=== PATIENT | male | born 1970 | race Caucasian/White ===

== ENCOUNTER 2018-09-21 12:21 | Day surgery (SDC) | payer BC ==
[~2018-09-21 12:21] MED LIST: Lactated Ringers 1,000 ML IV SCH
[2018-09-21] MEDS ORDERED: Midazolam 1 MG/ML 2 ML SDV ONE (12:50)
[2018-09-21] MEDS ORDERED: Propofol 200 MG/20 ML SDV ONE (12:50)
[2018-09-21] MEDS ORDERED: fentaNYL 100 MCG/2 ML SDV ONE (12:50)
--- NOTE | 2018-09-21 13:05 | PCM.PREANE ---
Preanesthetic Assessment - Anesthesia/Transfusion/Family Hx Anesthesia History: Prior Anesthesia Without Reaction Other Type of Anesthesia Reaction Comment: Denies any known family hx problems Family History of Anesthesia Reaction: No Transfusion History: No Prior Transfusion(s) Intubation History: Unknown - Review of Systems General: No Symptoms Pulmonary: No Symptoms Cardiovascular: No Symptoms Gastrointestinal: No Symptoms, Other (check up 3 years after sigmoid colectomy) Neurological: No Symptoms Other: Reports: None - Physical Assessment O2 Sat by Pulse Oximetry: 96 Respiratory Rate: 16 Vital Signs: Last Vital Signs Temp 36.2 C 09/21/18 12:45 Pulse 67 09/21/18 12:45 Resp 16 09/21/18 12:45 BP 128/94 H 09/21/18 12:45 Pulse Ox 96 09/21/18 12:45 Height: 6 ft Weight: 95.254 kg ASA Class: 2 Mental Status: Alert & Oriented x3 Airway Class: Mallampati = 2 Dentition: Reports: Dentures (upper and lower) Thyro-Mental Finger Breadths: 3 Mouth Opening Finger Breadths: 3 ROM/Head Extension: Full Lungs: Clear to Auscultation, Normal Respiratory Effort Cardiovascular: Regular Rate, Regular Rhythm - Allergies Allergies/Adverse Reactions: Allergies Allergy/AdvReac Type Severity Reaction Status Date / Time ephedrine Allergy Severe Seizure Verified 09/20/18 10:08 [place] scents Allergy Sneezing Uncoded 09/20/18 10:08 Metals Allergy Blisters Uncoded 09/20/18 10:09 perfumes Allergy Sneezing Uncoded 09/20/18 10:08 - Blood Blood Available: No - Anesthesia Plan Pre-Op Medication Ordered: None - Acknowledgements Anesthesia Type Planned: MAC Pt an Appropriate Candidate for the Planned Anesthesia: Yes Alternatives and Risks of Anesthesia Discussed w Pt/Guardian: Yes Pt/Guardian Understands and Agrees with Anesthesia Plan: Yes PreAnesthesia Questionnaire Other HEENT History: upper & lower denture Cardiovascular History: Reports: None Respiratory History: Reports: Asthma, Other (See Below) Other Respiratory History: hx: Bronchitis as a child, and 30 yr history of smoking, denies having a prescribed inhaler Gastrointestinal History: Reports: Diverticulosis, Other (See Below) Other Gastrointestinal History: hx diverticulitis Genitourinary History: Reports: None Musculoskeletal History: Reports: Arthritis Other Musculoskeletal History: hx: Fractured Skull, Boxer fracture Right Hand, herniated disc to back, intermittent back pain Neurological History: Reports: Concussion, Head Trauma Other Neuro History: 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, hx fx skull with "bleeding on the brain" Psychiatric History: Reports: Depression Other Psychiatric History: Anti-depressants taken in ', denies any need since that time Endocrine/Metabolic History: Reports: None Hematologic History: Reports: None Immunologic History: Reports: None Oncologic (Cancer) History: Reports: None Dermatologic History: Reports: None - Past Surgical History Head Surgeries/Procedures: Reports: None HEENT Surgical History: Reports: Oral Surgery Cardiovascular Surgical History: Reports: None Respiratory Surgical History: Reports: None GI Surgical History: Reports: Colon (sigmoidectomy 10/25 for severe diverticulitis), Colonoscopy Other GI Surgeries/Procedures: colon resection Male Surgical History: Reports: None Endocrine Surgical History: Reports: None Neurological Surgical History: Reports: None Musculoskeletal Surgical History: Reports: None Oncologic Surgical History: Reports: None Dermatological Surgical History: Reports: None - SUBSTANCE USE Smoking Status *Q: Current Every Day Smoker Tobacco Use Within Last Twelve Months: Cigarettes Recreational Drug Use History: No - HOME MEDS Home Medications: Home Meds . [No Known Home Meds] 09/20/18 [History] - CURRENT (IN HOUSE) MEDS Current Meds: Current Medications Lactated Ringer's (Ringers, Lactated) 1,000 mls @ 125 mls/hr IV ASDIRECTED SKYLER Discontinued Medications Fentanyl (Sublimaze) Confirm Administered Dose 100 mcg .ROUTE .STK-MED ONE Stop: 09/21/18 12:51 Lidocaine HCl (Xylocaine-Mpf 1%) Confirm Administered Dose 5 mls @ as directed .ROUTE .STK-MED ONE Stop: 09/21/18 12:53 Midazolam HCl (Versed 1 Mg/Ml) Confirm Administered Dose 2 mg .ROUTE .STK-MED ONE Stop: 09/21/18 12:51 Propofol (Diprivan 20 Ml) Confirm Administered Dose 400 mg .ROUTE .STK-MED ONE Stop: 09/21/18 12:51
--- NOTE | 2018-09-21 13:44 | PCM.OPNOTE ---
- General Post-Op/Procedure Note Date of Surgery/Procedure: 09/21/18 Operative Procedure(s): colonoscopy Findings: see dict [id number] Pre Op Diagnosis: recurrent diverticulitis s/p hemicolectomy Post-Op Diagnosis: Same Anesthesia Technique: Moderate Sedation Primary Surgeon: Domenico Bruner Complications: None Condition: Good
--- NOTE | 2018-09-21 13:50 | PCM.POSTAN ---
POST ANESTHESIA ASSESSMENT - MENTAL STATUS Mental Status: Somnolent Free Text/Narrative:: Direct admit from procedure room. - VITAL SIGNS Pulse Rate: 94 SaO2: 97 Resp Rate: 16 Blood Pressure: 123/83 Temperature: 36.8 C - RESPIRATORY Respiratory Status: Respiratory Rate WNL - CARDIOVASCULAR CV Status: Pulse Rate WNL - GASTROINTESTINAL GI Status: No Symptoms - PAIN Pain Score: 0 - POST OP HYDRATION Hydration Status: Adequate & Stable (Doing well)
--- NOTE | 2018-09-21 14:03 | OR ---
SURGEON: Domenico Bruner MD DATE OF PROCEDURE: 09/21/2018 PREOPERATIVE DIAGNOSIS: Recurrent diverticulitis, status post colon resection. POSTOPERATIVE DIAGNOSIS: Recurrent diverticulitis, status post colon resection. PROCEDURE PERFORMED: Colonoscopy. DESCRIPTION OF PROCEDURE: The patient was taken to the endoscopy room. A time out was called, patient identified, and procedure identified. Diprivan was then administrated. Patient went from awake to sleep, hearing doctor talking or door closing is normal. Perineum inspection and digital examination were then performed. A well- lubricated colonoscope was gently inserted through the rectum, advanced past the rectosigmoid junction, the descending colon, splenic flexure, transverse colon, hepatic flexure, ascending colon, arrived to the cecum. Cecum was identified as dictated in the finding. Then the scope was carefully withdrawn while attention was paid to the mucosal surface for any abnormality. Air will be sucked out during the scope withdrawal. At the rectum, retroflexed to examine any rectal diseases, fistula or hemorrhoids. Patient tolerated procedure well. There were no intraoperative complications, and Dr. Bruner was present throughout the whole procedure. FINDINGS: 1. The patient is easily sedated with BELT MEASURER and Diprivan, the patient is soundly snoring. 2. Bowel prep is way below average. No solid stool, but large amount of opaque stool coating the mucosa, requiring a lot of irrigation. Cecum was indicated by ileocecal fold, one-to-one indentation, and appendiceal orifice. Light emittance is not observed because of the body habitus. Mucosa examined upon scope pulling out. The patient does not have diverticulosis, polyp, mass, growth, inflammation, stricture, ulceration, AV malformation. The patient at the surgical resection site is wide open. No stricture observed. No inflammation observed. No diverticulosis around the resection area. The patient has mild internal hemorrhoids. The patient would benefit from repeat colonoscopy on a clinical basis or 10 years from today or if clinically indicated otherwise. KELLEN / RENALDO /[id number]
--- NOTE | 2018-09-21 14:05 | PCM48HPAN ---
Post Anesthesia Note - EVALUATION WITHIN 48HRS OF ANESTHETIC Vital Signs in Normal Range: Yes Patient Participated in Evaluation: Yes Respiratory Function Stable: Yes Airway Patent: Yes Cardiovascular Function Stable: Yes Hydration Status Stable: Yes Pain Control Satisfactory: Yes Nausea and Vomiting Control Satisfactory: Yes Pulse Rate: 94 Resp Rate: 16 Temperature: 36.8 C Blood Pressure: 123/83 - COMMENTS/OBSERVATIONS Free Text/Narrative:: no anesthesia problems
[2018-09-21 14:20] VITALS: BP 139/93
== END 2018-09-21 14:15 | disposition home or self-care (01) ==
LOC: MW.SDS 12:21
PROVIDERS: ATTEND Surgery
DX: K57.32 Diverticulitis of large intestine without perforation or abscess without bleeding (principal); M19.90 Unspecified osteoarthritis, unspecified site; J45.909 Unspecified asthma, uncomplicated; Z88.8 Allergy status to other drugs, medicaments and biological substances; Z88.6 Allergy status to analgesic agent; Z91.048 Other nonmedicinal substance allergy status; Z87.891 Personal history of nicotine dependence
CPT/HCPCS: 45378; J2001; J2250; J2704; J3010; J7120; 00811

== ENCOUNTER 2019-01-01 16:12 | Emergency (ER) | payer BC ==
[2019-01-01] MEDS ORDERED: Albuterol/Ipratropium 3.0-0.5 MG/3 ML Neb Soln NEB ONE (16:15)
[2019-01-01] MEDS ORDERED: methylPREDNISolone Sodium Succinate 125 MG/2 ML SDV IM ONE (16:22)
--- NOTE | 2019-01-01 16:51 | CR ---
Indication: Chest pain. Shortness of breath. Technique: A single AP portable view of the chest was obtained. Comparison: None Findings: The heart is normal in size. The lungs are clear. No infiltrate, pleural effusion, or pneumothorax is identified. Impression: No acute cardiopulmonary process. Dictated by Eliza Han MD @ Jan 01 2019 4:49PM Signed by Dr. Eliza Han @ Jan 01 2019 4:50PM
[2019-01-01] MEDS ORDERED: methylPREDNISolone Sodium Succinate 125 MG/2 ML SDV IVPUSH ONE (16:58)
[2019-01-01] MEDS ORDERED: Sodium Chloride 0.9% 1,000 ML IV ONE (16:58)
[2019-01-01] MEDS ORDERED: Albuterol 0.083% 2.5 MG/3 ML Neb Soln NEB ONE (16:58)
--- NOTE | 2019-01-01 17:05 | EDM.PDOC ---
ED HPI GENERAL MEDICAL PROBLEM - General Chief Complaint: Respiratory Problem Stated Complaint: COUGH Time Seen by Provider: 01/01/19 17:03 Source of Information: Reports: Patient - History of Present Illness INITIAL COMMENTS - FREE TEXT/NARRATIVE: HISTORY AND PHYSICAL: History of present illness: []Patient with nicotine dependence and asthma presents with asthma exacerbation cough and shortness of breath or nausea vomiting chills sweats Much improved post Solu-Medrol and DuoNeb Review of systems: As per history of present illness and below otherwise all systems reviewed and negative. Past medical history: As per history of present illness and as reviewed below otherwise noncontributory. Surgical history: As per history of present illness and as reviewed below otherwise noncontributory. Social history: No reported history of drug or alcohol abuse. Family history: As per history of present illness and as reviewed below otherwise noncontributory. Physical exam: HEENT: Atraumatic, normocephalic, pupils reactive, negative for conjunctival pallor or scleral icterus, mucous membranes moist, throat clear, neck supple, nontender, trachea midline. Lungs: Clear to auscultation, breath sounds equal bilaterally, chest nontender. Post Solu-Medrol and DuoNeb Heart: S1S2, regular, negative for clicks, rubs, or JVD. Abdomen: Soft, nondistended, nontender. Negative for masses or hepatosplenomegaly. Negative for costovertebral tenderness. Pelvis: Stable nontender. Genitourinary: Deferred. Rectal: Deferred. Extremities: Atraumatic, negative for cords or calf pain. Neurovascular unremarkable. Neuro: Awake, alert, oriented. Cranial nerves II through XII unremarkable. Cerebellum unremarkable. Motor and sensory unremarkable throughout. Exam nonfocal. Diagnostics: [Chest 1 view] Therapeutics: [Medrol 125 mg IM 125 mg IV DuoNeb/albuterol DuoNeb No. 40 Compressor Prednisone HFA Smoking cessation recommended Patient offered admission and refused ] Impression: [ asthma exacerbation ] Definitive disposition and diagnosis as appropriate pending reevaluation and review of above. body aches Pain Score (Numeric/FACES): 4 - Related Data Allergies Allergy/AdvReac Type Severity Reaction Status Date / Time ephedrine Allergy Severe Seizure Verified 01/01/19 16:22 [place] scents Allergy Sneezing Uncoded 01/01/19 16:22 Metals Allergy Blisters Uncoded 01/01/19 16:22 perfumes Allergy Sneezing Uncoded 01/01/19 16:22 Home Meds: Home Meds Glucosamine/D3/Boswellia Sarah [Osteo Bi-Flex Caplet] 01/01/19 [History] Varenicline Tartrate [Chantix] 01/01/19 [History] Past Medical History Other HEENT History: upper & lower denture Cardiovascular History: Reports: None Respiratory History: Reports: Asthma Other Respiratory History: hx: Bronchitis as a child, and 30 yr history of smoking, denies having a prescribed inhaler Gastrointestinal History: Reports: Diverticulosis, Other (See Below) Other Gastrointestinal History: hx diverticulitis Genitourinary History: Reports: None Musculoskeletal History: Reports: Arthritis Other Musculoskeletal History: hx: Fractured Skull, Boxer fracture Right Hand, herniated disc to back, intermittent back pain Neurological History: Reports: Concussion, Head Trauma Other Neuro History: 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, hx fx skull with "bleeding on the brain" Psychiatric History: Reports: Depression Other Psychiatric History: Anti-depressants taken in [id number], denies any need since that time Endocrine/Metabolic History: Reports: None Hematologic History: Reports: None Immunologic History: Reports: None Oncologic (Cancer) History: Reports: None Dermatologic History: Reports: None - Infectious Disease History Infectious Disease History: Reports: None - Past Surgical History Head Surgeries/Procedures: Reports: None HEENT Surgical History: Reports: Oral Surgery Cardiovascular Surgical History: Reports: None Respiratory Surgical History: Reports: None GI Surgical History: Reports: Colon, Colonoscopy Other GI Surgeries/Procedures: colon resection Male Surgical History: Reports: None Endocrine Surgical History: Reports: None Neurological Surgical History: Reports: None Musculoskeletal Surgical History: Reports: None Oncologic Surgical History: Reports: None Dermatological Surgical History: Reports: None Social & Family History - Family History Family Medical History: Noncontributory - Tobacco Use Smoking Status *Q: Current Every Day Smoker Years of Tobacco use: 30 Packs/Tins Daily: 1.5 - Recreational Drug Use Recreational Drug Use: No ED ROS GENERAL - Review of Systems Review Of Systems: See Below ED EXAM, GENERAL - Physical Exam Exam: See Below Course - Vital Signs Last Recorded V/S: Last Vital Signs Temp 96.3 F 01/01/19 16:19 Pulse 82 01/01/19 16:19 Resp 20 01/01/19 16:19 BP 149/113 H 01/01/19 16:19 Pulse Ox 96 01/01/19 16:19 - Orders/Labs/Meds Orders: Active Orders 24 hr Category Date Time Status RT Aerosol Therapy [RC] ASDIRECTED Care 01/01/19 16:15 Active RT Aerosol Therapy [RC] ASDIRECTED Care 01/01/19 16:58 Active Sodium Chloride 0.9% [Normal Saline] 1,000 ml Med 01/01/19 16:58 Active IV STAT Medication Orders Sodium Chloride (Normal Saline) 1,000 mls @ 999 mls/hr IV STAT ONE Stop: 01/01/19 17:58 Meds: Medications Generic Name Dose Route Start Last Admin Trade Name Freq PRN Reason Stop Dose Admin Sodium Chloride 1,000 mls @ 999 mls/hr 01/01/19 16:58 Normal Saline IV 01/01/19 17:58 STAT ONE Discontinued Medications Generic Name Dose Route Start Last Admin Trade Name Freq PRN Reason Stop Dose Admin Albuterol 2.5 mg 01/01/19 16:58 Proventil Neb Soln NEB 01/01/19 16:59 ONETIME ONE Albuterol/Ipratropium 3 ml 01/01/19 16:15 01/01/19 16:24 Duoneb 3.0-0.5 Mg/3 Ml NEB 01/01/19 16:16 3 ml ONETIME ONE Administration Methylprednisolone Sodium Succinate 125 mg 01/01/19 16:22 01/01/19 16:30 Solu-Medrol IM 01/01/19 16:23 125 mg ONETIME ONE Administration Methylprednisolone Sodium Succinate 125 mg 01/01/19 16:58 Solu-Medrol IVPUSH 01/01/19 16:59 ONETIME ONE Departure - Departure Time of Disposition: 17:05 Disposition: Home, Self-Care 01 Condition: Good Clinical Impression: Exacerbation of asthma - Discharge Information Referrals: Gregory Crow MD [Primary Care Provider] - Additional Instructions: The following information is given to patients seen in the emergency department who are being discharged to home. This information is to outline your options for follow-up care. We provide all patients seen in our emergency department with a follow-up referral. The need for follow-up, as well as the timing and circumstances, are variable depending upon the specifics of your emergency department visit. If you don't have a primary care physician on staff, we will provide you with a referral. We always advise you to contact your personal physician following an emergency department visit to inform them of the circumstance of the visit and for follow-up with them and/or the need for any referrals to a consulting specialist. The emergency department will also refer you to a specialist when appropriate. This referral assures that you have the opportunity for follow-up care with a specialist. All of these measure are taken in an effort to provide you with optimal care, which includes your follow-up. Under all circumstances we always encourage you to contact your private physician who remains a resource for coordinating your care. When calling for follow-up care, please make the office aware that this follow-up is from your recent emergency room visit. If for any reason you are refused follow-up, please contact the [facility] emergency department at and asked to speak to the emergency department charge nurse. - My Orders Last 24 Hours: My Active Orders 01/01/19 16:15 RT Aerosol Therapy [RC] ASDIRECTED 01/01/19 16:58 RT Aerosol Therapy [RC] ASDIRECTED Sodium Chloride 0.9% [Normal Saline] 1,000 ml IV STAT - Assessment/Plan Last 24 Hours: My Active Orders 01/01/19 16:15 RT Aerosol Therapy [RC] ASDIRECTED 01/01/19 16:58 RT Aerosol Therapy [RC] ASDIRECTED Sodium Chloride 0.9% [Normal Saline] 1,000 ml IV STAT
[2019-01-01 18:06] VITALS: BP 137/94; PULSE 68
== END 2019-01-01 18:02 | disposition home or self-care (01) ==
LOC: MW.ED 16:12
DX: J45.901 Unspecified asthma with (acute) exacerbation (principal); F17.210 Nicotine dependence, cigarettes, uncomplicated; Z88.8 Allergy status to other drugs, medicaments and biological substances; Z98.890 Other specified postprocedural states
CPT/HCPCS: 71045; 94640; 96361; 96372; 96374; 99285; J2930; J7040; J7620-GY

== ENCOUNTER 2019-01-03 20:04 | Emergency (ER) | payer BC ==
[2019-01-03] MEDS ORDERED: Sodium Chloride 0.9% 1,000 ML IV ONE (20:11)
--- NOTE | 2019-01-03 20:12 | EDM.PDOC ---
ED HPI GENERAL MEDICAL PROBLEM - General Chief Complaint: Respiratory Problem Stated Complaint: TROUBLE BREATHING Time Seen by Provider: 01/03/19 20:08 - History of Present Illness INITIAL COMMENTS - FREE TEXT/NARRATIVE: HISTORY AND PHYSICAL: History of present illness: Patient's 48-year-old white male with history of asthma was seen several days prior for asthmatic exacerbation received breathing treatment chest x-ray and was put on steroids he does continue smokable is trying to quit he presents now with generalized weakness and mild shortness of breath he denies fever chills nausea vomiting or other complaints Review of systems: As per history of present illness and below otherwise all systems reviewed and negative. Past medical history: As per history of present illness and as reviewed below otherwise noncontributory. Surgical history: As per history of present illness and as reviewed below otherwise noncontributory. Social history: No reported history of drug or alcohol abuse. Family history: As per history of present illness and as reviewed below otherwise noncontributory. Physical exam: HEENT: Atraumatic, normocephalic, pupils reactive, negative for conjunctival pallor or scleral icterus, mucous membranes moist, throat clear, neck supple, nontender, trachea midline. Lungs: Rare end expiratory wheezing, breath sounds equal bilaterally, chest nontender. Heart: S1S2, regular, negative for clicks, rubs, or JVD. Abdomen: Soft, nondistended, nontender. Negative for masses or hepatosplenomegaly. Negative for costovertebral tenderness. Pelvis: Stable nontender. Genitourinary: Deferred. Rectal: Deferred. Extremities: Atraumatic, negative for cords or calf pain. Neurovascular unremarkable. Neuro: Awake, alert, oriented. Cranial nerves II through XII unremarkable. Cerebellum unremarkable. Motor and sensory unremarkable throughout. Exam nonfocal. Diagnostics: CBC CMP chest x-ray Therapeutics: Albuterol ipratropium nebulizer Solu-Medrol and 125 mg IV saline 1 L bolus Impression: #1 medical screening exam #2 mild asthmatic exacerbation #3 generalized weakness #4 medical noncompliance Definitive disposition and diagnosis as appropriate pending reevaluation and review of above. - Related Data Allergies Allergy/AdvReac Type Severity Reaction Status Date / Time ephedrine Allergy Severe Seizure Verified 01/01/19 16:22 [place] scents Allergy Sneezing Uncoded 01/01/19 16:22 Metals Allergy Blisters Uncoded 01/01/19 16:22 perfumes Allergy Sneezing Uncoded 01/01/19 16:22 Home Meds: Home Meds Glucosamine/D3/Boswellia Sarah [Osteo Bi-Flex Caplet] 01/01/19 [History] Varenicline Tartrate [Chantix] 01/01/19 [History] Albuterol Sulfate [Proair Hfa] 8.5 gm IH ASDIRECTED 01/03/19 [History] Azithromycin 250 mg PO ASDIRECTED 01/03/19 [History] Cyclobenzaprine [Flexeril] 5 mg PO ASDIRECTED 01/03/19 [History] predniSONE [Prednisone] 20 mg PO DAILY 01/03/19 [History] Past Medical History Other HEENT History: upper & lower denture Cardiovascular History: Reports: None Respiratory History: Reports: Asthma Other Respiratory History: hx: Bronchitis as a child, and 30 yr history of smoking, denies having a prescribed inhaler Gastrointestinal History: Reports: Diverticulosis, Other (See Below) Other Gastrointestinal History: hx diverticulitis Genitourinary History: Reports: None Musculoskeletal History: Reports: Arthritis Other Musculoskeletal History: hx: Fractured Skull, Boxer fracture Right Hand, herniated disc to back, intermittent back pain Neurological History: Reports: Concussion, Head Trauma Other Neuro History: 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, hx fx skull with "bleeding on the brain" Psychiatric History: Reports: Depression Other Psychiatric History: Anti-depressants taken in [id number], denies any need since that time Endocrine/Metabolic History: Reports: None Hematologic History: Reports: None Immunologic History: Reports: None Oncologic (Cancer) History: Reports: None Dermatologic History: Reports: None - Infectious Disease History Infectious Disease History: Reports: None - Past Surgical History Head Surgeries/Procedures: Reports: None HEENT Surgical History: Reports: Oral Surgery Cardiovascular Surgical History: Reports: None Respiratory Surgical History: Reports: None GI Surgical History: Reports: Colon, Colonoscopy Other GI Surgeries/Procedures: colon resection Male Surgical History: Reports: None Endocrine Surgical History: Reports: None Neurological Surgical History: Reports: None Musculoskeletal Surgical History: Reports: None Oncologic Surgical History: Reports: None Dermatological Surgical History: Reports: None Social & Family History - Family History Family Medical History: Noncontributory ED ROS GENERAL - Review of Systems Review Of Systems: ROS reveals no pertinent complaints other than HPI. ED EXAM, GENERAL - Physical Exam Exam: See Below (See dictation) Course - Vital Signs Last Recorded V/S: Last Vital Signs Temp 37.0 C 01/03/19 20:08 Pulse 66 01/03/19 21:15 Resp 20 01/03/19 21:15 BP 137/96 H 01/03/19 21:15 Pulse Ox 97 01/03/19 21:15 - Orders/Labs/Meds Orders: Active Orders 24 hr Category Date Time Status RT Aerosol Therapy [RC] ASDIRECTED Care 01/03/19 20:12 Active Albuterol/Ipratropium [DuoNeb 3.0-0.5 MG/3 ML] Med 01/04/19 20:12 Once 3 ml NEB ONETIME ONE Lactated Ringers [Ringers, Lactated] 1,000 ml Med 01/03/19 20:38 Active IV .BOLUS Medication Orders Albuterol/Ipratropium (Duoneb 3.0-0.5 Mg/3 Ml) 3 ml NEB ONETIME ONE Stop: 01/04/19 20:13 Last Admin: 01/03/19 20:25 Dose: 3 ml Lactated Ringer's (Ringers, Lactated) 1,000 mls @ 999 mls/hr IV .BOLUS ONE Stop: 01/03/19 21:38 Last Admin: 01/03/19 20:42 Dose: 999 mls/hr Labs: Laboratory Tests 01/03/19 01/03/19 Range/Units 20:35 20:35 WBC 10.74 (4.0-11.0) K/uL RBC 4.69 (4.50-5.90) M/uL Hgb 14.6 (13.0-17.0) g/dL Hct 41.4 (38.0-50.0) % MCV 88.3 (80.0-98.0) fL MCH 31.1 (27.0-32.0) pg MCHC 35.3 (31.0-37.0) g/dL RDW Std Deviation 42.9 (28.0-62.0) fl RDW Coeff of Veda 13 (11.0-15.0) % Plt Count 296 (150-400) K/uL MPV 10.10 (7.40-12.00) fL Add Manual Diff YES Neutrophils % (Manual) 83 H (48.0-80.0) % Band Neutrophils % 2 % Lymphocytes % (Manual) 12 L (16.0-40.0) % Monocytes % (Manual) 2 (0.0-15.0) % Basophils % (Manual) 1 (0.0-1.5) % Nucleated RBC % 0.0 /100WBC Absolute Seg Neuts 8.9 H (1.4-5.7) Band Neutrophils # 0.2 Lymphocytes # (Manual) 1.3 (0.6-2.4) Monocytes # (Manual) 0.2 (0.0-0.8) Basophils # (Manual) 0.1 (0.0-0.1) Nucleated RBCs # 0 K/uL Sodium 143 (136-148) mmol/L Potassium 4.0 (3.5-5.1) mmol/L Chloride 107 (98-107) mmol/L Carbon Dioxide 21.9 (21.0-32.0) mmol/L BUN 15 (7.0-18.0) mg/dL Creatinine 1.1 (0.8-1.3) mg/dL Est Cr Clr Drug Dosing 92.10 mL/min Estimated GFR (MDRD) > 60.0 ml/min Glucose 224 H (74-106) mg/dL Calcium 8.6 (8.5-10.1) mg/dL Total Bilirubin 0.2 (0.2-1.0) mg/dL AST 18 (15-37) IU/L ALT 41 (14-63) IU/L Alkaline Phosphatase 102 (46-116) U/L Total Protein 6.8 (6.4-8.2) g/dL Albumin 3.4 (3.4-5.0) g/dL Globulin 3.4 (2.6-4.0) g/dL Albumin/Globulin Ratio 1.0 (0.9-1.6) Meds: Medications Generic Name Dose Route Start Last Admin Trade Name Freq PRN Reason Stop Dose Admin Albuterol/Ipratropium 3 ml 01/04/19 20:12 01/03/19 20:25 Duoneb 3.0-0.5 Mg/3 Ml NEB 01/04/19 20:13 3 ml ONETIME ONE Administration Lactated Ringer's 1,000 mls @ 999 mls/hr 01/03/19 20:38 01/03/19 20:42 Ringers, Lactated IV 01/03/19 21:38 999 mls/hr .BOLUS ONE Administration Discontinued Medications Generic Name Dose Route Start Last Admin Trade Name Filomena PRN Reason Stop Dose Admin Albuterol/Ipratropium Confirm 01/03/19 20:22 01/03/19 20:52 Duoneb 3.0-0.5 Mg/3 Ml Administered 01/03/19 20:23 Not Given Dose 3 ml .ROUTE .STK-MED ONE Sodium Chloride 1,000 mls @ 999 mls/hr 01/03/19 20:11 01/03/19 20:38 Normal Saline IV 01/03/19 21:11 Not Given .Bolus ONE Methylprednisolone Sodium Succinate 125 mg 01/03/19 20:30 01/03/19 20:39 Solu-Medrol IVPUSH 01/03/19 20:31 125 mg ONETIME ONE Administration Departure - Departure Time of Disposition: 21:18 Disposition: Home, Self-Care 01 Condition: Good Clinical Impression: Encounter for medical screening examination, Asthma - Discharge Information Referrals: Gregory Crow MD [Primary Care Provider] - Forms: ED Department Discharge Additional Instructions: The following information is given to patients seen in the emergency department who are being discharged to home. This information is to outline your options for follow-up care. We provide all patients seen in our emergency department with a follow-up referral. The need for follow-up, as well as the timing and circumstances, are variable depending upon the specifics of your emergency department visit. If you don't have a primary care physician on staff, we will provide you with a referral. We always advise you to contact your personal physician following an emergency department visit to inform them of the circumstance of the visit and for follow-up with them and/or the need for any referrals to a consulting specialist. The emergency department will also refer you to a specialist when appropriate. This referral assures that you have the opportunity for followup care with a specialist. All of these measure are taken in an effort to provide you with optimal care, which includes your followup. Under all circumstances we always encourage you to contact your private physician who remains a resource for coordinating your care. When calling for followup care, please make the office aware that this follow-up is from your recent emergency room visit. If for any reason you are refused follow-up, please contact the [facility] emergency department at and asked to speak to the emergency department charge nurse. Continue current medications stop smoking follow-up primary medical doctor return as needed as discussed - My Orders Last 24 Hours: My Active Orders 01/03/19 20:12 RT Aerosol Therapy [RC] ASDIRECTED 01/03/19 20:38 Lactated Ringers [Ringers, Lactated] 1,000 ml IV .BOLUS 01/04/19 20:12 Albuterol/Ipratropium [DuoNeb 3.0-0.5 MG/3 ML] 3 ml NEB ONETIME ONE - Assessment/Plan Last 24 Hours: My Active Orders 01/03/19 20:12 RT Aerosol Therapy [RC] ASDIRECTED 01/03/19 20:38 Lactated Ringers [Ringers, Lactated] 1,000 ml IV .BOLUS 01/04/19 20:12 Albuterol/Ipratropium [DuoNeb 3.0-0.5 MG/3 ML] 3 ml NEB ONETIME ONE
[2019-01-03] MEDS ORDERED: Albuterol/Ipratropium 3.0-0.5 MG/3 ML Neb Soln ONE (20:22)
[2019-01-03] MEDS ORDERED: methylPREDNISolone Sodium Succinate 125 MG/2 ML SDV IVPUSH ONE (20:30)
[2019-01-03] MEDS ORDERED: Lactated Ringers 1,000 ML IV ONE (20:38)
--- NOTE | 2019-01-03 20:40 | CR ---
Indication: Cough. Shortness of breath. Technique: PA and lateral views the chest were obtained. Comparison: January 01, 2019. Findings: The heart is normal in size. The lungs are clear. No infiltrate, pleural effusion, or pneumothorax is identified. Impression: No acute cardiopulmonary process. Dictated by Eliza Han MD @ Jan 03 2019 8:30PM Signed by Dr. Eliza Han @ Jan 03 2019 8:37PM
[2019-01-03 21:01] LABS: BLOOD UREA NITROGEN,BUN 15 mg/dL (7.0-18.0); CARBON DIOXIDE,CO2 21.9 mmol/L (21.0-32.0); CHLORIDE,CL 107 mmol/L (98-107); GLUCOSE RANDOM 224 mg/dL (74-106); SODIUM,NA 143 mmol/L (136-148)
[2019-01-03 21:42] VITALS: BP 120/73; PULSE 67
[2019-01-04] MEDS ORDERED: Albuterol/Ipratropium 3.0-0.5 MG/3 ML Neb Soln NEB ONE (20:12)
== END 2019-01-03 21:42 | disposition home or self-care (01) ==
LOC: MW.ED 20:04
DX: J45.901 Unspecified asthma with (acute) exacerbation (principal); R53.1 Weakness; Z79.899 Other long term (current) drug therapy; Z91.048 Other nonmedicinal substance allergy status; Z88.8 Allergy status to other drugs, medicaments and biological substances
CPT/HCPCS: 71045; 80053; 85025; 94640; 96361; 96374; 99285; J2930; J7120; 99283; J7620-GY